=== PATIENT | male | born 1935 | race Two or more races ===

== ENCOUNTER 2024-02-15 06:29 | Emergency (ER) | payer OTHER ==
[~2024-02-15] VITALS: Ht 162.6 cm; Wt 73.0 kg
[2024-02-15 06:36] VITALS: BP 127/67; PULSE 60; RESP 16; TEMP 97.6; O2SAT 97
== END 2024-02-15 11:52 | disposition home or self-care (01) ==
LOC: EMS 06:29
DX: S51.811A Laceration without foreign body of right forearm, initial encounter (principal); W06.XXXA Fall from bed, initial encounter; Y93.89 Activity, other specified; Y92.89 Other specified places as the place of occurrence of the external cause; Y99.8 Other external cause status
CPT/HCPCS: 70450; 99284